=== PATIENT | male | born 1940 | race Caucasian/White ===

== ENCOUNTER 2021-01-09 11:03 | Inpatient (IN) | payer OTHER, MEDICARE ==
[~2021-01-09] VITALS: Ht 175.3 cm; Wt 109.1 kg
[2021-01-09 11:29] LABS: BASOPHILS % (AUTO) 0.2 % (0-1); EOSINOPHILS # (AUTO) 0.1 X10'3 (0-0.9); EOSINOPHILS % (AUTO) 1.3 % (0-6); HEMATOCRIT 45.5 % (42.0-52.0); HEMOGLOBIN 15.3 g/dl (14.0-17.9); LYMPHOCYTES # (AUTO) 3.1 X10'3 (1.1-4.8); LYMPHOCYTES % (AUTO) 35.2 % (21-51); MEAN CORPUSCULAR HEMOGLOBIN 30.3 PG (27.0-31.0); MEAN CORPUSCULAR HGB CONC 33.7 g/dL (33.0-36.5); MEAN CORPUSCULAR VOLUME 89.9 FL (78-98); MEAN PLATELET VOLUME 8.8 FL (7.4-10.4); MONOCYTES # (AUTO) 0.6 X10'3 (0-0.9); MONOCYTES % (AUTO) 6.8 % (2-12); NEUTROPHILS # (AUTO) 4.9 X10'3 (1.8-7.7); NEUTROPHILS % (AUTO) 56.5 % (42-75); PLATELET COUNT 160 X10'3 (140-440); RED BLOOD COUNT 5.06 X10'6 (4.70-6.10); RED CELL DISTRIBUTION WIDTH 13.9 % (11.5-14.5); WHITE BLOOD COUNT 8.7 X10'3 (4.5-11.0)
[2021-01-09 11:38] LABS: PARTIAL THROMBOPLASTIN TIME 26 SECONDS (22-32)
[2021-01-09 11:50] LABS: ALANINE AMINOTRANSFERASE 31 U/L (12-78); ALBUMIN 3.9 G/DL (3.4-5.0); ALBUMIN/GLOBULIN RATIO 1.2 (1.1-1.5); ALKALINE PHOSPHATASE 71 IU/L (46-116); ANION GAP 8 (8-16); ASPARTATE AMINO TRANSFERASE 18 U/L (10-37); BILIRUBIN,TOTAL 0.6 MG/DL (0.1-1.0); BLOOD UREA NITROGEN 12 MG/DL (7-18); BUN/CREATININE RATIO 12.8 (5.4-32.0); CALCIUM 8.5 MG/DL (8.5-10.1); CHLORIDE 108 MMOL/L (99-107); CREATININE 0.94 MG/DL (0.60-1.10); GLUCOSE 139 MG/DL (70-104); LIPASE 120 U/L (73-393); POTASSIUM 3.9 MMOL/L (3.5-5.1); SODIUM 144 MMOL/L (135-145); TOTAL CARBON DIOXIDE 28.1 MMOL/L (24-32); TOTAL PROTEIN 7.1 G/DL (6.4-8.2); eGFR 77 ML/MIN
--- NOTE | 2021-01-09 19:19 | NUR ---
PT ROOMED. ASSUMED CARE OF PT. EKG BEING COMPLETED. PT ON WRITER. PT DENIES FEELING DIZZY AT PRESENT. AT BEDSIDE.
--- NOTE | 2021-01-09 20:10 | NUR ---
SPOUSE (SABRINA) PHONE NUMBERS ARE: LANDLINE: [phone] CELL: [phone] DAUGHTER'S (LEIGHTON): [phone]
[2021-01-09] MEDS ORDERED: potassium Cl 20 mEq SR tablet PO PRN ×2 (22:50)
[2021-01-09] MEDS ORDERED: magnesium 2GM in 50ml NS 50 ML IV PRN (22:50)
[2021-01-09] MEDS ORDERED: potassium Cl 40MEQ/1/2NS 520ml 520 ML IV PRN ×2 (22:50)
[2021-01-09] MEDS ORDERED: magnesium 4gm in 100ml NS 100 ML IV PRN (22:50)
[2021-01-09] MEDS ORDERED: acetaminophen 325mg tablet PO PRN (22:50)
[2021-01-09] MEDS ORDERED: ondansetron/PF 4mg/2ml inj IV PRN (22:50)
[2021-01-09] MEDS ORDERED: magnesium Cl slow-release 64mg tablet PO PRN (22:50)
[2021-01-09] MEDS ORDERED: PERFLUTREN PROTEIN-A MICROSPHR (Optison) 0.22 MG/ML 3ML VIAL IV PRN (22:50)
[2021-01-09] MEDS: normal saline 1000ml 1,000 ML IV SCH (23:08)
[2021-01-10 00:38] LABS: HEMOGLOBIN 14.3 g/dl (14.0-17.9); MEAN CORPUSCULAR HEMOGLOBIN 30.3 PG (27.0-31.0); MEAN PLATELET VOLUME 8.5 FL (7.4-10.4); RED BLOOD COUNT 4.71 X10'6 (4.70-6.10); WHITE BLOOD COUNT 5.6 X10'3 (4.5-11.0)
[2021-01-10 00:40] LABS: BASOPHILS % (AUTO) 0.8 % (0-1); EOSINOPHILS # (AUTO) 0.1 X10'3 (0-0.9); EOSINOPHILS % (AUTO) 2.2 % (0-6); LYMPHOCYTES # (AUTO) 2.2 X10'3 (1.1-4.8); MEAN CORPUSCULAR VOLUME 89.3 FL (78-98); MONOCYTES # (AUTO) 0.5 X10'3 (0-0.9); MONOCYTES % (AUTO) 9.3 % (2-12); NEUTROPHILS # (AUTO) 2.7 X10'3 (1.8-7.7); NEUTROPHILS % (AUTO) 47.7 % (42-75); PLATELET COUNT 155 X10'3 (140-440)
[2021-01-10 00:48] LABS: ALBUMIN 3.7 G/DL (3.4-5.0); ANION GAP 7 (8-16); BLOOD UREA NITROGEN 11 MG/DL (7-18); BUN/CREATININE RATIO 13.6 (5.4-32.0); CALCIUM 8.6 MG/DL (8.5-10.1); CHLORIDE 109 MMOL/L (99-107); CREATININE 0.81 MG/DL (0.60-1.10); GLUCOSE 115 MG/DL (70-104); MAGNESIUM 2.2 MG/DL (1.5-2.4); POTASSIUM 4.1 MMOL/L (3.5-5.1); SODIUM 144 MMOL/L (135-145); TOTAL CARBON DIOXIDE 28.1 MMOL/L (24-32); eGFR > 90 ML/MIN
[2021-01-10] MEDS ORDERED: CLOP75TA34 PO (03:23)
[2021-01-10] MEDS ORDERED: PRAV40TA3 PO (03:23)
[2021-01-10] MEDS ORDERED: AMLO10TA PO (03:23)
[2021-01-10] MEDS ORDERED: AMLO5TAB96 PO (03:23)
[2021-01-10 06:40] LABS: CLARITY,URINE CLEAR (Clear); COLOR,URINE YELLOW (Yellow); GLUCOSE, URINE NEGATIVE (Neg); KETONES,URINE NEGATIVE (Neg); LEUKOCYTE ESTERASE ,URINE NEGATIVE (Neg); NITRITES, URINE NEGATIVE (Neg); OCCULT BLOOD,URINE NEGATIVE (Neg); PROTEIN,URINE NEGATIVE (Neg); UA COLLECTION TYPE URINAL; UROBILINOGEN,URINE 0.2 E.U/dL (0.2-1.0)
[2021-01-10] MEDS ORDERED: K and/or MAG REPLACEMENT MC SCH (08:00)
--- NOTE | 2021-01-10 09:30 | NUR ---
final operations technician at bedside.
--- NOTE | 2021-01-10 09:46 | NUR ---
event crew technician at bedside.
[2021-01-10] MEDS: normal saline 1000ml 1,000 ML IV SCH (10:08)
--- NOTE | 2021-01-10 15:44 | NUR ---
Patient in room ED 3. I have received report from Manuel PATE and had the opportunity to ask questions and will assume patient care when he arrives to the floor.
[2021-01-10 16:50] VITALS: BP 140/65
[2021-01-11] MEDS ORDERED: clopidogrel 75mg tablet PO SCH (08:00)
[2021-01-11] MEDS ORDERED: atorvastatin 10mg tablet PO SCH (08:00)
[2021-01-11] MEDS ORDERED: amLODIPine 5mg tablet PO SCH (08:00)
== END 2021-01-10 16:53 | disposition home or self-care (01) | DRG 312 ==
LOC: ER 11:04 → ED HOLD 22:51
PROVIDERS: ADMIT Internal Medicine; ATTEND Family Medicine
DX: R55 Syncope and collapse (principal); I10 Essential (primary) hypertension; E78.5 Hyperlipidemia, unspecified; Z86.73 Personal history of transient ischemic attack (TIA), and cerebral infarction without residual deficits; Z79.02 Long term (current) use of antithrombotics/antiplatelets; Z88.2 Allergy status to sulfonamides; Z79.899 Other long term (current) drug therapy; R42 Dizziness and giddiness
CPT/HCPCS: 36415; 70450; 71045; 80048; 80053; 81003; 83690; 83735; 83880; 84484; 85025; 85610; 85730; 93005; 93306; 93880; 99285; G0378; J7030

== ENCOUNTER 2025-02-01 13:08 | Emergency (ER) | payer OTHER, MEDICARE ==
[~2025-02-01] VITALS: Ht 175.3 cm; Wt 109.6 kg
[~2025-02-01 13:08] MED LIST: AMLO10TA PO; CLOP75TA34 PO; PRAV40TA17 PO
[2025-02-01 13:16] VITALS: TEMP 98.7
--- NOTE | 2025-02-01 13:47 | ELECTROCARDIOGRAPH REPORT ---
[facility] Test Date: 2025-02-01 Test Time: 13:46:12 Pat Name: CHERYL ADDISON Department: [facility]- Patient ID: [facility]-[id number] Room: Gender: M Stenciler: : 1940 Requested By: DA CASTANEDA Order Number: [id number] Reading MD: Dr. CELSO Vicente Measurements Intervals Tillman Rate: 61 P: 49 DC: 200 QRS: -73 QRSD: 147 T: 77 QT: 453 QTc: 457 Interpretive Statements Sinus rhythm IVCD, consider atypical RBBB Left ventricular hypertrophy Inferior infarct, old Anterior infarct, old Baseline wander in lead(s) V1 Electronically Signed On 02-03-2025 16:51:[address] CELSO Vicente Please click the below link to view image of tracing.
--- NOTE | 2025-02-01 14:58 | Physician Documentation ---
History of Present Illness ~ Chief Complaint: Head Pain Stated Complaint: DIZZINESS Time Seen by MD: 15:13 HPI 84-year-old male with a history of CVA who presents with several months of posterior neck pain extending into his occipital region described as burning, patient reports that moving his neck in certain ways while trigger the pain that is then relieved when he moves his neck. Patient is accompanied by his who reports she has been concerned that he has had two episodes where it appeared he was having a seizure where he was described as having a tremor and seeming out of it, patient's reports that when she called his name several times he came out of it and responded. In addition this patient does have a history of multiple strokes which occurred in 2011. States that the symptoms then were similar to the ones that he has now however he denies any weakness and he is alert and oriented has no slurred speech. says he is acting per his baseline. He has take clopidogrel to prevent blood clots secondary to previous stroke Day of Onset: Feb 01, 2025 Medication Reconciliation Allergies: Coded Allergies: Sulfa (Sulfonamide Antibiotics) (Verified Allergy, Unknown, 02/01/25) Scheduled Amlodipine Besylate (Amlodipine Besylate), 1 TABLET PO DAILY, (Reported) Clopidogrel Bisulfate (Clopidogrel), 75 TABLET PO DAILY, (Reported) Pravastatin Sodium (Pravastatin Sodium), 1 TAB PO DAILY, (Reported) Past Medical History Past Medical History: CVA/TIA/Stroke, Hypertension Past Surgical History: no surgical history Alcohol Use: None Drug Use: none Lives with: Spouse Lives In: Home Review of Systems All Other Systems at this time: Reviewed and Negative ROS As stated above in the HPI, otherwise all systems are reviewed and negative. Physical Exam Vital Signs: Temperature: 98.7, Source: Oral, Heart Rate: 48, Respiratory Rate: 18, BP: 138/54, Pulse Oximetry: 95, Weight: 109.600 Oxygen Flow Rate: 0 Physical Exam VITALS: Reviewed and as above. GENERAL: Alert, nontoxic appearing, no apparent distress. HEENT: PERRLA, EOMI, being neck through full range of motion without pain, neck nontender to palpation RESPIRATORY: No increased work of breathing, no respiratory distress, speaking in full clear sentences CHEST: CV: BACK: GI: MUSCULOSKELETAL: SKIN: NEURO: GCS 15, normal gait, moving all extremities equally, no facial droop, no slurred speech PSYCH: Progress Results/Orders Results/Orders Orders - BENY BRADLEY HEATER HELPER FORGE Ct Head (02/01/25 ) Ct Cervical Spine (02/01/25 ) Chest,Single View (02/01/25 15:36) Completed Orders - BENY BRADLEY HEATER [employer] Ct Head (02/01/25 ) Ct Cervical Spine (02/01/25 ) Cbc/Diff (02/01/25 15:36) BMP (02/01/25 15:36) Pt Inr (02/01/25 15:36) PTT (02/01/25 15:36) Urinalysis, Cult If Indicated (02/01/25 15:36) Chest,Single View (02/01/25 15:36) Vital Signs 02/01/25 02/01/25 02/01/25 13:16 16:51 17:44 Temp 98.7 Pulse 48 61 Resp 18 18 B/P (MAP) 138/54 128/72 Pulse Ox 95 96 O2 Flow Rate 0 Laboratory Tests Test 02/01/25 15:48 02/01/25 17:11 White Blood Count 6.8 Red Blood Count 5.17 Hemoglobin 15.4 Hematocrit 45.9 Mean Corpuscular Volume 88.8 Mean Corpuscular Hemoglobin 29.9 Mean Corpuscular Hemoglobin Concent 33.6 Red Cell Distribution Width 14.1 Platelet Count 153 Mean Platelet Volume 9.0 Neutrophils (%) (Auto) 52.2 Lymphocytes (%) (Auto) 37.7 Monocytes (%) (Auto) 7.4 Eosinophils (%) (Auto) 2.0 Basophils (%) (Auto) 0.7 Neutrophils # (Auto) 3.6 Lymphocytes # (Auto) 2.6 Monocytes # (Auto) 0.5 Eosinophils # (Auto) 0.1 Basophils # (Auto) 0.0 CBC Comment Prothrombin Time 10.7 INR International Normalized Ratio 1.0 Activated Partial Thromboplast Time 26 Coagulation Comments Sodium Level 141 Potassium Level 4.4 Chloride Level 107 Carbon Dioxide Level 26.9 Anion Gap 7 L Blood Urea Nitrogen 19 H Creatinine 1.01 Estimated GFR/1.73 m2 70 BUN/Creatinine Ratio 18.8 Glucose Level 152 H Calcium Level 8.6 Albumin 4.0 Chemistry Comments Urine Specimen Description Cln catch midstream Urine Color Yellow Urine Clarity Clear Urine pH 5.5 Urine Specific Trent >=1.030 Urine Protein Negative Urine Glucose (UA) Negative Urine Ketones Trace H Urine Occult Blood Negative Urine Nitrite Negative Urine Bilirubin Small Urine Urobilinogen 0.2 Urine Leukocyte Esterase Negative Urine Culture Indicated Not ind Volume Urine Centrifuged 10 ml Urine Comment Medical Decision Making Additional information obtaine: N/A Findings I explained with the patient that by a large his laboratory values CT x-ray and EKG were all grossly unremarkable and do not suggest cardiac events stroke or urinary tract infection not limited to these differentials Offered hospitalization for intermittent weakness however the patient declined The patient's reported neck pain I suspect maybe related to a cervical strain however he we will need to follow up in the outpatient setting and request an M RI at the [facility] Based on this the history of the events from the patient's I do not suspect that he was experiencing seizure as there was no postictal.. And patient came back to his baseline after the reported Differential Dx:Considerations: Include: Cervical muscle spasm, Discitis, DJD, Meningitis, Thyroiditis, Torticollis, Vertebral artery dissect., Other Departure Disposition: HOME / SELF CARE / HOMELESS Impression: Primary Impression: Headache Additional Impression: Neck pain Condition: Stable Referrals: NO PRIMARY CARE PROVIDER (PCP) Signature Scribe Signature: g Attestation: Scribed for Beny Bradley Sleeper Cutter by Beny Ellison NP . 02/01/25 17:37 MARI MONTEIRO Feb 01, 2025 14:58 BENY BRADLEY NP Feb 01, 2025 15:34
[2025-02-01 16:17] LABS: MEAN PLATELET VOLUME 9.0 FL (7.4-10.4); RED CELL DISTRIBUTION WIDTH 14.1 % (11.5-14.5)
--- NOTE | 2025-02-01 16:25 | RADIOLOGY REPORT ---
EXAM: CT CT HEAD INDICATION: seizure like activity w/ hx of stroke COMPARISON: CT HEAD on DOS: 01/10/21 TECHNIQUE: CT of the head without intravenous contrast. Radiation Dose Information: CT Dose: CTDI volume is 58 mGy. Dose-length product is 1013 mGy*cm The dose indicators for CT are the volume Computed Tomography (CT) Dose Index (CTDIvol) and the Dose Length Product (DLP), and are measured in units of mGy and mGy-cm, respectively. These indicators are not patient dose, but values generated from the CT scanner acquisition factors. The report includes radiation exposure data for exposures received during this examination. Findings: Scattered hypoattenuation in the periventricular and subcortical white matter, suggestive of chronic microvascular disease. Old right cerebellar infarct. The ventricles and sulci are mildly enlarged, compatible with generalized parenchymal volume loss. There is no mass-effect, hemorrhage, midline shift, or abnormal extra-axial fluid collection visible. No calvarial fracture. Essentially clear visualized paranasal sinuses. Mastoid air cells are clear. IMPRESSION: No acute intracranial hemorrhage or mass effect.
[2025-02-01 16:28] LABS: CREATININE 1.01 MG/DL (0.60-1.10); INR 1.0 INR; TOTAL CARBON DIOXIDE 26.9 MMOL/L (24-32); eCRCL 53 ML/MIN; eGFR 70 ML/MIN
--- NOTE | 2025-02-01 16:28 | RADIOLOGY REPORT ---
EXAM: DI CHEST,SINGLE VIEW HISTORY: Stroke Alert TECHNIQUE: 1 view of the chest COMPARISON: CHEST,SINGLE VIEW on DOS: 01/09/21 FINDINGS/IMPRESSION: LUNGS: Low lung volumes, which cause crowding of the bronchovascular markings. Possible atelectasis /opacification of the left lung base. MEDIASTINUM: Unremarkable. 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
--- NOTE | 2025-02-01 16:36 | RADIOLOGY REPORT ---
EXAM: CT CT CERVICAL SPINE INDICATION: seizure like activity w/ hx of stroke EXAM DATE: 02/01/2025 03:59 PM COMPARISON: None Technique: CT exam of the cervical spine was performed without intravenous contrast. CT Dose: CTDI volume is 24 mGy. Dose-length product is 557 mGy*cm Findings: No evidence of acute fracture. Alignment is within normal limits. Degenerative changes of the cervical spine. No high-grade canal stenosis. No prevertebral edema. Paraspinal soft tissues are within normal limits. Small posterior right neck subcutaneous lipoma. Visualized lung apices are clear. IMPRESSION: NO EVIDENCE OF ACUTE FRACTURE OR TRAUMATIC MALALIGNMENT OF THE CERVICAL SPINE.
[2025-02-01 16:57] LABS: APTT 26 SECONDS (22-32)
[2025-02-01 17:20] LABS: LEUKOCYTE ESTERASE ,URINE NEGATIVE (Neg); NITRITES, URINE NEGATIVE (Neg); OCCULT BLOOD,URINE NEGATIVE (Neg)
[2025-02-01 17:31] LABS: UA COLLECTION TYPE CLN CATCH MIDSTREAM
[2025-02-01 17:44] VITALS: BP 128/72; PULSE 61; RESP 18; O2SAT 96
== END 2025-02-01 17:48 | disposition home or self-care (01) ==
LOC: ER 13:08
DX: R51.9 Headache, unspecified (principal); M54.2 Cervicalgia; I10 Essential (primary) hypertension; I25.2 Old myocardial infarction; R40.2410 Glasgow coma scale score 13-15, unspecified time; Z86.73 Personal history of transient ischemic attack (TIA), and cerebral infarction without residual deficits; Z88.2 Allergy status to sulfonamides; Z79.899 Other long term (current) drug therapy
CPT/HCPCS: 70450; 71045; 72125; 80048; 81003; 85025; 85610; 85730; 93005; 99285